=== PATIENT | female | born 1990 | race Caucasian/White ===

== ENCOUNTER 2023-08-17 22:13 | Emergency (ER) | payer BC, SELFPAY ==
[2023-08-17 22:17] VITALS: BP 129/90
[2023-08-17 22:23] VITALS: BP 129/90
--- NOTE | 2023-08-17 22:36 | ED.GENMED ---
History of Present Illness
General
Chief Complaint: Allergic Reaction
Source: patient
Exam Limitations: none
Time Seen by Provider: 08/17/23 22:30
Travel History
Have you had any contact with someone who has COVID-19?: No
Do you have any symptoms of coronavirus? Fever > 100 degrees, chills, cough, shortness of breath, sore throat, loss of taste or smell, muscle aches, or headache?: No
History of Present Illness
History of Present Illness:
See MDM
Past History
Past History
ED Past Medical History: Psychiatric and Other (Celiac)
ED Past Surgical History: Tonsilectomy
Social History
Tobacco: Non-smoker
Alcohol: None
Phy Exam
Physical Exam
Physical Exam:
See MDM
Course
Orders/Labs/Results
Orders:
Orders
08/17/23 22:15
ECG [Electrocardiogram (*1)] Urgent
Reason for Study: Chest Pain
08/17/23 22:16
EKG- Treatment ONCE
08/17/23 22:34
Complete Blood Count/With Diff Urgent
Comprehensive Metabolic Panel Urgent
08/17/23 22:35
0.9% Sodium Chloride 500 ml [Nss] 500 ml IV BOLUS
Diphenhydramine [Benadryl] 25 mg IV NOW STA
Abnormal Lab Results
08/17/23
22:34
MCV 80.5 L fL
(81.0-99.0)
Sodium 128 L mmol/L
(135-145)
Chloride 97 L mmol/L
(98-107)
BUN 5 L mg/dl
(7-17)
08/17/23 22:34
08/17/23 22:34
Vital Signs
Initial and Last Documented VS:
Initial Vital Signs
Temp Pulse Resp BP Pulse Ox
97.5 F 101 13 129/90 100
08/17/23 22:17 08/17/23 22:17 08/17/23 22:17 08/17/23 22:17 08/17/23 22:17
Last Documented Vital Signs
Temp Pulse Resp BP Pulse Ox
97.5 F 102 14 109/82 100
08/17/23 22:17 08/18/23 00:30 08/18/23 00:30 08/18/23 00:00 08/18/23 00:30
MDM/Problems Addressed
Differential Diagnosis Includes:
HPI and MDM Narrative:
33-year-old female presenting with concern for allergic reaction. Patient does acknowledge that she does not drink caffeine due to the side effects. Instead, she drank a energy drink. She soon began to feel palpitations and anxiety. On arrival,
patient feeling somewhat better
We discussed this is likely an adverse reaction to the ingredients rather than a true allergic reaction. Will give fluids and Benadryl and continue to reassess
Physical exam
General: Well appearing and non-toxic
HEENT: protecting airway
Neck: appears supple
CV: No evidence of cyanosis. Initial tachycardia resolved
Resp: No accessory muscle use
Abd: Non-distended
Extremities: No deformities
Neuro: alert
Psych: Mildly anxious
Skin: Intact
Problems Addressed including Acute and Chronic Conditions affecting care:
1. Adverse medication reaction
Acuity: acute
Prognosis: stable
Details: Will continue to monitor. Will give dose of Benadryl for hypersympathetic drive
Updates
On reevaluation, patient continues to be nontoxic-appearing. I did discuss her mildly low sodium. Discussed this could be medication related. Discussed having this followed up with her PCP
Differential Diagnosis (but not limited to): Adverse medication reaction, allergic reaction
Drug therapy (if applicable): OTC meds, please see d/c instruction regarding Rx drugs
Amount and/or Complexity of Data Reviewed
Clinical info obtained from: Patient
External data reviewed: N/A
Labs I independently reviewed (but not limited to): Hyponatremia
Radiology: N/A
Pulse Ox: not hypoxic
EKG independently reviewed: N/A
Department Clinician: Sinus rhythm
Critical Care: N/A
Risk of Complication:
Social Determinants of health: Good social support
Discussed with other providers: N/A
Escalation of Care includes Admit/Obs: After being observed in the Emergency Department, pt stable for discharge.
Occasional wrong word or 'sound a like' substitutions may have occurred due to the inherent limitations of voice recognition software. Read the chart carefully and recognize, using context, where substitutions have occurred.
*Critical Care Note
Total Time (30-74mins, 75-104mins- exclusive of procedures): Not Applicable
ED Attending Note
-
Portions of this chart may have been created with voice recognition software.� Occasional wrong word or��sound alike� substitutions may have occurred due to the inherent limitations of voice recognition software.
Discharge Plan
Departure
Patient Disposition: Home (Routine Discharge)
Date of Disposition: 08/18/23
Time of Disposition: 00:36
Patient with high blood pressure during this ER visit?: No
Discharge Problem:
Adverse drug effect, Acute hyponatremia
Instructions: Adverse Drug Reactions, Adult (DC)
Referrals:
NONE,* [Family Provider] -
Stand Alone Forms: Return to Work
Activity Restrictions/Additional Instructions:
Please return for any worsening symptoms.
You may return at any time if you have further concerns.
Please follow up with your doctor at the first available appointment, preferably this week. Please discuss your low sodium level.
Interventions
Interventions:
*Risk Screen - Suicide Last Done: 08/17/23 22:24
*General Assessment Last Done: 08/17/23 22:24
*Neglect/Abuse Screening Last Done: 08/17/23 22:24
*ED COVID-19 Vaccine History Last Done: 08/17/23 22:24
ED- Cardiac Assessment Last Done: 08/17/23 22:46
ED- Pulmonary Assessment Last Done: 08/17/23 22:46
ED-Skin Assessment Last Done: 08/17/23 22:46
Discharge Date and Time
Print Language: [place]
[2023-08-17] MEDS: NSS 500 IV (22:41)
[2023-08-17] MEDS: BENADRYL 25 MG IV (22:42)
[2023-08-17 22:50] LABS: % Basophils 0.6 % (0-2); % Eosinophils 2.9 % (0-6); % Immature Granulocytes 0.3 % (0-0.5); % Lymphocytes 23.5 % (20.5-51.1); % Neutrophils 64.7 % (42.2-75.2); Absolute Eosinophils 0.2 10^3/uL (0-0.7); Absolute Lymphocytes 1.5 10^3/uL (1.2-3.4); Absolute Monocytes 0.5 10^3/uL (0.1-0.6); Absolute Neutrophils 4.2 10^3/uL (1.4-6.5); Hematocrit 39.2 % (37.0-47.0); Hemoglobin 13.5 g/dL (12.0-16.0); Mean Corp Hgb Conc. 34.4 g/dL (33.0-37.0); Mean Corpuscular Hgb 27.7 pg (27.0-31.0); Mean Corpuscular Volume 80.5 fL (81.0-99.0); Mean Platelet Volume 8.3 fL (7.4-10.4); Nucleated Red Blood Cells % 0 %; Platelet Count 270 10^3/uL (130-400); Red Blood Cell Count 4.87 10^6/uL (4.20-5.40); Red Cell Dist. Width 13.6 % (11.5-14.5); White Blood Cell Count 6.5 10^3/uL (4.8-10.8)
[2023-08-17 23:03] LABS: ALT (SGPT) 26 U/L (0-35); AST (SGOT) 31 U/L (14-36); Albumin 4.7 g/dl (3.5-5.0); Alkaline Phosphatase 102 U/L (38-126); Blood Urea Nitrogen 5 mg/dl (7-17); Calcium 9.9 mg/dl (8.4-10.2); Carbon Dioxide 23 mmol/L (22-30); Chloride 97 mmol/L (98-107); Glucose 96 mg/dl (70-99); Potassium 3.8 mmol/L (3.5-5.1); Sodium 128 mmol/L (135-145); Total Bilirubin 0.5 mg/dl (0.2-1.3); Total Protein 7.2 g/dl (6.3-8.2); eGFR > 60.00
[2023-08-18] VITALS: BP 109/82
== END 2023-08-18 00:43 | disposition home or self-care (01) ==
LOC: EMR 22:13
PROVIDERS: Student in an Organized Health Care Education/Training Program; EMERGENCY PHYSICIAN Student in an Organized Health Care Education/Training Program
DX: F41.9 Anxiety disorder, unspecified (principal); E87.1 Hypo-osmolality and hyponatremia; T50.905A Adverse effect of unspecified drugs, medicaments and biological substances, initial encounter; Y92.9 Unspecified place or not applicable
CPT/HCPCS: 99283; 96374; 80053; 85025; 93005